=== PATIENT | female | born 1960 | race African-American/Black ===

== ENCOUNTER 2019-06-20 21:42 | Emergency (ER) | payer SELFPAY ==
[~2019-06-20] VITALS: Ht 154.9 cm; Wt 55.0 kg
[2019-06-20 22:45] VITALS: BP 100/69
== END 2019-06-21 05:54 | disposition left against medical advice (07) ==
LOC: ER 22:59
DX: Z53.21 Procedure and treatment not carried out due to patient leaving prior to being seen by health care provider (principal)